=== PATIENT | female | born 1945 | race Caucasian/White ===

== ENCOUNTER 2017-01-23 12:36 | Emergency (ER) | payer MEDICARE, OTHER ==
[2017-01-23 13:03] LABS: Urine Bilirubin Negative (NEGATIVE); Urine Blood 50 /ul (NEGATIVE); Urine Ketone Negative (NEGATIVE); Urine Nitrite Negative (NEGATIVE); Urine Protein Negative (NEGATIVE); Urine Specific Gravity <=1.005 SP.GR. (1.005-1.010); Urine Urobilinogen Normal (NORMAL); Urine pH 6.5 pH (5.0-7.0)
[2017-01-23 13:10] LABS: Urine Appearance Clear; Urine Bacteria None Seen; Urine Color Yellow; Urine WBC None Seen /hpf (0-5)
--- NOTE | 2017-01-23 13:18 | ERNOTE ---
Dizziness ER Record Date of Service: 01/23/17 Presenting Symptoms: dizziness Time Seen by Provider: 01/23/17 12:52 Source: patient, family Exam Limitations: no limitations Immunizations: IMMUNIZATION HX Immunizations Up to Date Yes History of Influenza Vaccine Yes Hx Pneumococcal Vaccination Yes Allergies/Adverse Reactions: Allergies Allergy/AdvReac Type Severity Reaction Status Date / Time No Known Allergies Allergy Unverified 01/23/17 12:48 Home Medications: HOME MEDICATIONS Levothyroxine Sodium [Synthroid] 50 mcg PO DAILY 01/23/17 [Last Taken Unknown] Nitrofurantoin Macrocrystal [Macrodantin] 100 mg PO TID 7 Days #21 capsule 01/23 [Last Taken Unknown] - History of Present Illness Narrative: Patient states she was sitting playing her piano this morning and developed sudden onset of dizziness and tremors. Also states she had mild bilateral blurred vision which resolved after approx 10 minutes. States the dizziness and tremors lasted about 2 hrs and then resolved on her own. Also admits to some dysuria along with suprapubic tenderness over the past few days. Otherwise denies any fever or other symptoms. Date (Duration): 01/23/17 Time (Timing): 10:00 Timing and Duration: sudden onset Episodes lasting:: 2 hrs Noted on awakening:: No Severity: max: moderate Severity: currently: gone Associated Symptoms: Present: nausea, light headedness Sense of movement: Present: vague Usually:: Present: walks w/o assistance Modifying Factors - (Improves): Reports: nothing Modifying Factors - (Worsens): Reports: nothing Review of Systems - Narrative Narrative: See complaint narrative. - Review of Systems Constitutional: Present: other - All symptoms are currently resolved other than urinary EYE: Present: blurred vision ENT: Present: no symptoms reported Respiratory: Present: no symptoms reported Cardiology: Present: no symptoms reported Gastrointestinal/Abdominal: Present: nausea Genitourinary: Present: dysuria, decreased urinary output Musculoskeletal: Present: no symptoms reported Skin: Present: no symptoms reported Neurological: Present: dizziness/light-headedness Endocrine: Present: no symptoms reported Hematologic/Lymphatic: Present: no symptoms reported Psych: Present: no symptoms reported - Patient's Past Medical History Patient History - Medical: Hypothyroidism Patient History - Cardiac/Respiratory: No pertinent hx Patient History - Cancer: No Hx of Cancer Patient History - Surgical Procedures: Appendectomy, Cholecystectomy, T & A Patient History - Other: None LMP (females 10-50): post - Family History Father Family History - Cardiac/Respiratory: Cardiac Arrest - Social History Living Situations: home Psych History: No pertinent hx Smoking Status: Never smoker Alcohol Use: none Drug Use: none - Immunizations Immunizations Up to Date: Yes Hx Pneumococcal Vaccination: Yes History of Influenza Vaccine: Yes Physical Exam - Physical Exam Narrative: Does not appear in any acute distress. General Appearance: Present: wd/wn, alert, no apparent distress Head Exam: Present: normal inspection Eye Exam: Normal inspection: bilateral, PERRL: bilateral, EOMI: bilateral Ears, Nose, Throat: Present: normal ENT inspection Neck: Present: normal inspection Respiratory: Present: no respiratory distress, normal breath sounds, lungs clear Cardiovascular/Chest: Present: regular rate, rhythm, no murmur, normal peripheral pulses Gastrointestinal/Abdominal: Present: nontender, soft, other - Hyperactive BS. Mild suprapubic tenderness. Extremity Exam: Present: normal inspection, normal range of motion, no edema Neurological Exam: Present: alert, oriented, normal mood/affect, no motor/ sensory deficits, asbestos remover II-XII nml as tested Skin Exam: Present: normal color, warm/dry ED Progress - Vital Signs Vital Signs: Vital Signs 01/23/17 12:39 Temperature 37.1 C Respiratory 16 Rate Blood Pressure 135/81 O2 Sat by Pulse 68 L Oximetry - EKG EKG: NSR EKG read: Reviewed by me EKG Comments: No ST elevation or depression noted. - Progress/Reassessment Chief Complaint: Dizziness Progress Note-Subjective: 01/23/17 14:18 Currently states she is symptoms free. Departure Clinical Impression: Spastic dysuria, Lightheadedness - Departure Disposition: Home Follow Up Needed Condition: Good Additional Instructions: No acute findings today other than some blood in your urine. However since you have seen a urologist for this we will not do further testing at this time. However based on your symptoms and history I am going to go ahead and treat you with an antibiotic and see how you get along. Drink plenty of water and if your symptoms worsen or continue let us know or follow up with your family provider. Prescriptions: Nitrofurantoin Macrocrystal [Macrodantin] 100 mg PO TID 7 Days #21 capsule
[2017-01-23 13:39] LABS: Hematocrit 39.2 % (37.0-47.0); Hemoglobin 13.7 gm/dL (12.5-16.0); Mean Cell Volume 90.3 fl (78-100); Mean Corpuscular Hemoglobin 31.6 pg (27-31); Mean Corpuscular Hgb Conc 34.9 g/dl (32-36); Neutrophil # 3.4 K/mm3 (1.3-6.0); Platelet Count 205 K/mm3 (150-450); Red Blood Count 4.34 M/mm3 (4.2-5.4); Red Cell Distribution Width 12.2 % (11.5-14.0)
[2017-01-23 13:51] LABS: Albumin * 3.9 gm/dl (3.4-5.0); Anion Gap 16.4 mmol/L (6.8-13.8); BUN/Creatinine Ratio 16.9 (9.0-21.6); Bilirubin, Total 0.5 mg/dL (0.0-1.1); Ca. Corrected For Albumin 9.1 mg/dL (8.4-10.2); Calcium * 9.3 mg/dL (7.9-10.9); Carbon Dioxide 25.9 mmol/L (24-32.6); Magnesium 2.3 mg/dL (1.2-2.8); Potassium 4.3 mmol/L (3.4-4.6); Total Protein 7.3 gm/dL (6.2-8.2)
[2017-01-23 14:26] VITALS: BP 131/68
== END 2017-01-23 14:40 | disposition home or self-care (01) ==
LOC: ER 12:36
DX: R30.0 Dysuria (principal); R42 Dizziness and giddiness; E03.9 Hypothyroidism, unspecified